=== PATIENT | male | born 1960 | race Caucasian/White ===

== ENCOUNTER 2019-10-16 09:37 | Outpatient (CLI) | payer MEDICARE, SELFPAY ==
--- NOTE | 2019-10-16 10:25 | ECG_ITS ---
Measurements Intervals [place] Rate: 66 P: 29 PA: 194 QRS: -16 QRSD: 98 T: 14 QT: 394 QTc: 414 Interpretive Statements SINUS RHYTHM BORDERLINE R WAVE PROGRESSION, ANTERIOR LEADS BORDERLINE ECG Electronically Signed On 10-16-2019 10:49:25 [employer] by Leo Kurtz D.O.
[2019-10-16 11:16] LABS: Eosinophils Absolute Auto 0.2 K/mm3 (0-0.3); Eosinophils Percent Auto 4.5 % (0-4.4); Hematocrit 45.6 % (42.0-52.0); Hemoglobin 15.3 g/dL (14.0-18.0); Immature Granulocyte Absolute 0.01 K/mm3 (0.00-0.031); Immature Granulocyte Percent A 0.3 % (0-0.5); Lymphocytes Absolute Auto 0.81 K/mm3 (0.9-3.2); Lymphocytes Percent Auto 20.3 % (18.3-44.2); Mean Corpuscular HGB Conc 33.6 g/dl (32-36); Mean Corpuscular Hemoglobin 29.9 pg (26-34); Mean Corpuscular Volume 89.1 fl (80-100); Mean Platelet Volume 10.3 fl (7.4-10.4); Monocytes Absolute Auto 0.5 K/mm3 (0.1-0.6); Monocytes Percent Auto 13.5 % (2.6-8.5); Neutrophils Absolute Auto 2.4 K/mm3 (1.3-6.7); Neutrophils Percent Auto 60.4 % (45.5-73.1); Platelet Count Result 255 k/mm3 (150-375); Red Blood Count 5.12 M/mm3 (4.6-6.20)
[2019-10-16 11:23] LABS: Urine Cotinine NEGATIVE
[2019-10-16 11:26] LABS: Albumin Level 4.6 g/dL (3.5-5.1); Estimated Glomerular Filt Rate > 60; Glucose 93 mg/dL (75-110)
[2019-10-16 11:51] LABS: Hemoglobin A1C 5.1 % (<5.7)
== END 2019-10-16 09:38 | disposition home or self-care (01) ==
PROVIDERS: PCP Family Medicine; Visit Provider Orthopaedic Surgery
DX: Z01.818 Encounter for other preprocedural examination (principal); M17.10 Unilateral primary osteoarthritis, unspecified knee
CPT/HCPCS: 36415; 80307; 82040; 82565; 82947; 83036; 85025; 93005

== ENCOUNTER 2019-10-31 01:52 | Day surgery (SDC) | payer MEDICARE, SELFPAY ==
[2019-10-16 10:25] VITALS: BP 142/90; PULSE 69; RESP 16; TEMP 36.7; O2SAT 95; BMI 36.1
--- NOTE | 2019-10-29 11:17 | PM.IMHP ---
H&P: HPI History of Present Illness Chief complaint: Osteoarthritis Right Knee Narrative: Evans Rico is a 59 year old male with chronic ongoing history of pain localized right knee this is due to primary osteoarthritis. The patient has pain with ambulation he has started pain rest pain and night pain. He can't stand or walk for long periods, he has mechanical symptoms and swelling occasionally problems are worse with activity somewhat relieved by rest. Patient has trouble with squatting kneeling going up and down stairs. Despite a long course of conservative measures including cortisone therapy and anti-inflammatories as symptoms continue. X-rays demonstrate advanced primary osteoarthritis in the right knee joint. At this point the patient is discuss further treatment options in detail with Dr. Kapadia he would now like to proceed with a right total knee arthroplasty. The patient has a history of mild depression and benign prostatic hypertrophy for which she is treated with medication orally. Patient denies any previous surgical interventions. He has a history of primary osteoarthritis as well. Patient reports no known drug allergies. Review of Systems Review of Systems: Narrative: Ten point review of systems is negative except for occasional ringing in his ears. [facility] Family History Family History Mother Family history of malignant neoplasm Father Family history of pancreatic disease Other Cerebrovascular accident Family history of cardiovascular disease Social History Social History Smoking status: Former smoker Smoking end date: 09/05/08 Alcohol intake: never Gender identity (if verbalized by the patient): Male Meds Home Medications and Allergies Home Medications Medication Instructions Recorded Confirmed Type diphenhydramine HCl [Allergy 25 mg PO Q6H PRN 10/16/19 10/16/19 History (diphenhydramine)] duloxetine 60 mg PO DAILY 10/16/19 10/16/19 History meloxicam 15 mg PO DAILY 10/16/19 10/16/19 History tamsulosin 0.4 mg PO DAILY 10/16/19 10/16/19 History Allergies Allergy/AdvReac Type Severity Reaction Status Date / Time No Known Allergies Allergy Unverified 10/16/19 09:55 Exam Narrative: Exam Narrative: On exam the patient is noted be well-developed well-nourished male no acute distress HEENT exam within normal limits heart regular rate rhythm. Lungs clear to auscultation. The patient is noted be 510-135 lb. Abdomen benign. Extremities showed the patient's right knee to be painful with manipulation range of motion. He has tenderness along the joint lines of pain the extremes of motion with subpatellar crepitation mild effusion swelling. Hips move well negative Stinchfield negative REESE. Strength is 5 5. x-rays show advanced primary osteoarthritis right knee joint. there is mild limitation of motion due to pain. Neurovascular is intact. Skin is intact. Central nervous system exam within normal limits. Assessment and Plan Additional Plan The patient is noted to have advanced primary osteoarthritis right knee joint. The patient has discussed risks benefits limitations and alternatives of surgery in great detail with Dr. Kapadia the patient is noted proceed with a right total knee arthroplasty. The patient is scheduled to go surgery 10/31/[address] [facility] with Dr. Kapadia the patient voiced understanding agrees above plan.
[2019-10-31] VITALS (12 sets, daily range): BP systolic 87–130; BP diastolic 63–103; PULSE 76–93; RESP 12–20; TEMP 36.3–36.8; O2SAT 92–98
--- NOTE | ~2019-10-31 | XR_ITS ---
EXAMINATION: XR knee RT 2V DATE: 10/31/2019 09:35 INDICATION: Total right knee arthroplasty. Postop. TECHNIQUE: 2 views of right knee were obtained. COMPARISON: Right knee radiographs 04/23/2013 FINDINGS: There is a total right knee arthroplasty with patellar resurfacing in near-anatomic alignme nt. No fracture. There is gas in the knee joint and soft tissues, consistent with recent surgery. Ant erior skin pao are noted. IMPRESSION: 1. Total right knee arthroplasty in near-anatomic alignment. Reviewed, dictated and finalized at location A. ER MACHINE
[2019-10-31] MEDS: LACTATED RINGERS 1,000 ML 30 ML IV CONT ×2 (06:35→09:18)
--- NOTE | 2019-10-31 07:01 | WPDHPUPDATE1 ---
History and Physical Update Update Date/Time: 10/31/19 07:01 History and Physical has been reviewed, including an updated exam of the patient. There are NO changes in the patient's condition. Risks, benefits, and alternatives have been discussed and questions answered. Patient agrees to proceed with procedure.
--- NOTE | 2019-10-31 07:20 | WPDANESEPPF ---
Anes - Initial Pre Proc Eval Procedure: Operation Date: 10/31/19 07:30 Proposed Procedures p Right Total Knee Arthroplasty - Mauro Kapadia MD Date/Time: 10/31/19 07:20 Surgeon: Mauro Kapadia MD Pre Op Diagnosis: Osteoarthritis Right Knee Patient Data Age: 59 Gender: M Height: 1.78 m Weight: 112.3 kg Last Vital Signs Temp 36.4 C L 10/31/19 06:15 Pulse 69 10/16/19 10:25 Resp 20 10/31/19 06:15 BP 125/89 10/31/19 06:15 Pulse Ox 97 10/31/19 06:15 Allergies Allergy/AdvReac Type Severity Reaction Status Date / Time No Known Allergies Allergy Unverified 10/31/19 06:46 Home Medications Medication Instructions Recorded Confirmed Type diphenhydramine HCl [Allergy 25 mg PO Q6H PRN 10/16/19 10/31/19 History (diphenhydramine)] duloxetine 60 mg PO DAILY 10/16/19 10/31/19 History meloxicam 15 mg PO DAILY 10/16/19 10/31/19 History tamsulosin 0.4 mg PO DAILY 10/16/19 10/31/19 History Patient hx anesthesia problems: none Family hx anesthesia problems: none [facility] Past Medical History Medical History (Updated 10/31/19 @ 07:21 by Dion Benitez MD) Anxiety Arthritis BPH (benign prostatic hyperplasia) Obesity Family History Family History Mother Family history of malignant neoplasm Father Family history of pancreatic disease Other Cerebrovascular accident Family history of cardiovascular disease Social History Social History Smoking status: Former smoker Smoking end date: 09/05/08 Alcohol intake: never Gender identity (if verbalized by the patient): Male Anes - Eval Final PreProcedure Day of Procedure 10/31/19 07:20 Patient weight: obese Heart: regular rate and rhythm Lungs: clear to auscultation and normal air movement Airway: Mallampati scale class II Neurological: alert and oriented Last oral intake: >/= 8 hours ASA classification: II Emergent: no Anesthetic plan: proceed Anesthesia type and monitoring: general LMA and ETT Informed Consent: The patient's anesthetic plan and its attendant risks and benefits were discussed with the patient/family/POA. Questions were solicited and answers provided to the satisfaction of the patient/family/POA.
[2019-10-31] MEDS: ceFAZolin 2 GM/D5W 50 ML 2 GM/50 ML BAG IVPB (07:37)
--- NOTE | 2019-10-31 07:39 | WPDANESPNB ---
Anes - Peripheral Nerve Block Date/Time: 10/31/19 07:39 I have discussed with the patient/family/POA the placement of a peripheral nerve block for post-operative pain management, including associated risks, benefits, complications, and side effects. Alternative methods of post-operative analgesia were detailed. Questions were solicited and answers provided to the satisfaction of the patient/family/POA. Time-Out: A pre-procedural Time-Out was completed immediately before starting the procedure and confirmed: Patient Identification, Site, Procedure, Patient Position and the Availability of Requisite Equipment. Clinical Indications: Acute post-operative pain management requested by the operative surgeon. Nerve Block Insertion Note Anes-nerve block: adductor canal right Patient position: supine Skin prep: chlorhexidine Needle: 22 gauge, stimulating, insulated echogenic needle. Needle length: 80 mm Technique: ultrasound Technique comment: in plane Injectate: bupivacaine 0.5% with epi 5 mcg/ml (30cc) Observations: tolerated well Complications: none Procedure start time:: 725 Procedure end time:: 730
[2019-10-31] MEDS: GENTAMICIN BONE CEMENT REFOBACIN 1 EACH TOPICAL (07:47)
[2019-10-31] MEDS: ceFAZolin SODIUM 1 GM VIAL IV PUSH (08:36)
--- NOTE | 2019-10-31 08:47 | P.OP_ITS ---
Procedure Note - Detailed Date of procedure: 10/31/19 Pre-op diagnosis: Osteoarthritis Right Knee Post-op diagnosis: same Procedure performed: [Right] total knee arthroplasty Description of procedure: The patient was brought to the operating room. General anesthetic was administered. Placed on the operating table and sterilely prepped and draped in usual manner. A longitudinal incision was made. Tourniquet inflated to 300 mmHg for a total of [time] minutes. Dissection carried down to the fascia. Medial parapatellar incision was made and the patella subluxated laterally. Patella cut from [25] to [16] mm and sized for a [] mm button. The tibia cut perpendicular to the long axis and femur cut in 5 degrees of valgus, a [70] femur trialed. [79] tibia was felt to fit the best. The soft tissue balanced, hemostasis obtained. All [address], [79] tibia, [70] femur, [34] mm patella, and [14] mm poly. Motion was 0-125 degrees with good stablility and flexion and extension. The wound was closed with #2 vicryl, 2-0 Vicryl and pao. Anesthesia: GETA Surgeon: Mauro Kapadia MD [employer] Administrator: Hong Potter Estimated blood loss (mL): 200 Drains: No Packing: No Pathology: none sent Complications: No immediate complications Condition: stable Disposition: PACU Findings: arthritis
--- NOTE | 2019-10-31 09:53 | SUR.PHASEI ---
0953 - family updated on pt's status and sent to floor
[2019-10-31] MEDS: DOCUSATE SODIUM 100 MG CAPSULE PO ×2 (12:35→18:34)
--- NOTE | 2019-10-31 13:25 | WPDCN ---
Assessment and Plan Assessment and plan (1) Arthritis of right knee: Code(s): M17.11 - Unilateral primary osteoarthritis, right knee Status: Acute Assessment and Plan: Postoperative day 0, right total knee arthroplasty. Wound care and pain control deferred to Dr. Kapadia. Will also defer DVT prophylaxis to Dr. Kapadia. CBC and BMP ordered for a.m. (2) BPH (benign prostatic hyperplasia): Code(s): N40.0 - Benign prostatic hyperplasia without lower urinary tract symptoms Status: Acute Assessment and Plan: Continue tamsulosin. (3) Anxiety: Code(s): F41.9 - Anxiety disorder, unspecified Status: Acute Assessment and Plan: Continue duloxetine. HPI Data of Consult Date/Time: 10/31/19 13:25 Requesting Physician: Mauro Kapadia MD Primary Care Provider: Jose Elizalde MD Consult Narrative Narrative: Evans Rico is a 5-year-old male with osteoarthritis and benign prostatic hyperplasia whom the hospitalist service has been consulted for postoperative medical management. He has had longstanding pain in his right knee, not amenable to conservative outpatient treatment, and thus he elected for replacement today. His surgery was performed today per Dr. Kapadia, under general anesthesia, with no immediate complications documented an estimated blood loss of 200 milliliters. Postoperatively, he notes that his pain is pretty well controlled. He has not had postoperative fever, chills, sweats, nausea, vomiting, or chest pain, or shortness of breath. He also denies paresthesias, skin color, temperature changes distal to the surgical site. Review of Systems Review of Systems: Narrative: Twelve systems were reviewed with pertinent positives and negatives as per HPI. No recent cold or flu symptoms. No history of cardiac or pulmonary disease. He had a syncopal episode in 2011, and prior to losing consciousness he was complaining of palpitations. A stress echo done in November 2011 was unremarkable, and he has had no issues since that time. He denies exertional chest pain and shortness of breath. No history of obstructive sleep apnea, however when he had a colonoscopy at age 49 he was told that he should probably be checked for it. He does snore and admits that he does not sleep very well. He denies daytime somnolence and falling asleep at inopportune times. No witnessed apneic episodes. He does not wish to be screened for this today. No history of venous thromboembolism. Except as documented, all other systems were reviewed and are negative. [facility] Past Medical History Medical History (Updated 10/31/19 @ 15:06 by Rosalba Barron PA-C) Anxiety Arthritis BPH (benign prostatic hyperplasia) Obesity Surgical History Surgical History (Updated 10/31/19 @ 15:04 by Rosalba Barron PA-C) S/P cubital tunnel release Status post laparoscopic cholecystectomy Status post total right knee replacement Family History Family History Mother Family history of malignant neoplasm Father Family history of pancreatic disease Other Cerebrovascular accident Family history of cardiovascular disease Social History Social History (Updated 10/31/19 @ 15:08 by Rosalba Barron PA-C) Social History: The patient is and lives with his in [place], [place]. 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 He designates his , Gillian, as his surrogate decision maker and he wishes to be a full code. He is a former smoker and quit > 10 years ago. No alcohol or drug abuse. Spiritual care concerns: No Agree to blood products: No Meds Home Medications and Allergies Home Medications Medication Instructions Recorded Confirmed Type diphenhydramine HCl [Allergy 25 mg PO Q6H PRN 10/16/19 10/31/19 History (diphenhydramine)] duloxetine 60 m
[2019-10-31] MEDS: CELECOXIB 200 MG CAPSULE PO (18:34)
[2019-10-31] MEDS: RIVAROXABAN 10 MG TABLET PO (18:34)
[2019-11-01 02:00] VITALS: BP 110/75; PULSE 81; RESP 16; TEMP 36.9; O2SAT 92
[2019-11-01 06:00] VITALS: BP 116/72; PULSE 84; RESP 18; TEMP 36.9; O2SAT 96
[2019-11-01 06:22] LABS: Basophils Percent Auto 0.2 % (0.2-1.2); Hematocrit 38.4 % (42.0-52.0); Hemoglobin 12.4 g/dL (14.0-18.0); Immature Granulocyte Absolute 0.07 K/mm3 (0.00-0.031); Immature Granulocyte Percent A 0.6 % (0-0.5); Lymphocytes Absolute Auto 0.71 K/mm3 (0.9-3.2); Lymphocytes Percent Auto 5.9 % (18.3-44.2); Mean Corpuscular HGB Conc 32.3 g/dl (32-36); Mean Corpuscular Hemoglobin 29.7 pg (26-34); Mean Corpuscular Volume 92.1 fl (80-100); Mean Platelet Volume 10.4 fl (7.4-10.4); Monocytes Absolute Auto 1.2 K/mm3 (0.1-0.6); Neutrophils Percent Auto 83.3 % (45.5-73.1); Platelet Count Result 229 k/mm3 (150-375); Red Blood Count 4.17 M/mm3 (4.6-6.20); Red Cell Distribution Width 12.4 % (11.5-14.5); White Blood Count 11.9 K/mm3 (4.5-10.0)
[2019-11-01 06:42] LABS: Blood Urea Nitrogen 19 mg/dL (9-20); Calcium 8.5 mg/dL (8.4-10.2); Carbon Dioxide 29 mmol/L (22-30); Chloride 96 mmol/L (98-107); Estimated CRCL calculation 96 ml/min; Estimated Glomerular Filt Rate > 60; Glucose 120 mg/dL (75-110); Potassium 4.4 mmol/L (3.4-5.0); Sodium 136 mmol/L (137-145)
[2019-11-01] MEDS: TAMSULOSIN HCL 0.4 MG CAPSULE PO (08:19)
[2019-11-01] MEDS: CELECOXIB 200 MG CAPSULE PO (08:19)
[2019-11-01] MEDS: DOCUSATE SODIUM 100 MG CAPSULE PO (08:19)
[2019-11-01] MEDS: DULOXETINE 60 MG CAPSULE.DR PO (08:19)
--- NOTE | 2019-11-01 09:23 | PM.IMPN ---
Progress Note: A&P Assessment and Plan (1) Status post total right knee replacement: Code(s): Z96.651 - Presence of right artificial knee joint Status: Acute Assessment and Plan: POD#1 s/p right total knee arthroplasty by Dr. Kapadia 10/31. Wound care, pain control, DVT prophylaxis per the primary service. (2) BPH (benign prostatic hyperplasia): Qualifiers: Lower urinary tract symptom presence: unspecified whether lower urinary tract symptoms present Qualified Code(s): N40.0 - Benign prostatic hyperplasia without lower urinary tract symptoms Code(s): N40.0 - Benign prostatic hyperplasia without lower urinary tract symptoms Status: Acute Assessment and Plan: Continue tamsulosin. (3) Anxiety: Code(s): F41.9 - Anxiety disorder, unspecified Status: Acute Assessment and Plan: Stable. Continue duloxetine. Additional Plan Thank you for allowing me to participate this patient's care. He is medically stable for discharge from hospitalist standpoint once the primary service deems this appropriate. Recommend continuing his home medications at the current dosages. Subjective Date/time seen: 11/01/19 0845 Interval history: Mr. Rico is a 59yo M seen in follow-up this morning POD#1 s/p right total knee arthroplasty by Dr. Kapadia. Seems to have tolerated the procedure well and is in good spirits this morning. He has not yet been up with therapy. He denies chest pain, shortness of breath, or calf tenderness. He has tolerated breakfast without nausea or vomiting. Review of Systems Review of Systems: Narrative: Twelve systems were reviewed with pertinent positives and negatives as per HPI. Exam Narrative: Exam Narrative: General: Pleasant male resting supine in bed in no acute distress. HEENT: Normocephalic, EOMI, oral mucosa moist. Cardiovascular: Rate and rhythm are regular. Respiratory: Lungs clear to auscultation all higgins. Non-labored breathing. Abdomen: Soft, non-tender, non-distended, bowel sounds present. Extremities: Peripheral pulses intact. No edema appreciated. Right lower extremity neurovascularly intact distal to the surgical site. Ice pack applied to right knee and Juan wrap in place. Neuro: No focal neurological deficits. Speech is clear. Objective Data Vital Signs Vital Signs: Last Vital Signs Temp 98.4 F 11/01/19 06:00 Pulse 84 11/01/19 06:00 Resp 18 11/01/19 06:00 BP 116/72 11/01/19 06:00 Pulse Ox 96 11/01/19 06:00 Intake/Output Intake/Output: Intake & Output 10/29/19 10/30/19 10/31/19 11/01/19 23:59 23:59 23:59 23:59 Intake Total 1240 600 Balance 1240 600 Meds/Results Medications: Active Medications Generic Name Dose Route Start Last Admin Trade Name Freq PRN Reason Stop Dose Admin Hydrocodone Bitart/Acetaminophen 1 tab 10/31/19 10:35 11/01/19 08:19 [place] 5-325 Mg PO 1 tab Q4H PRN Administration Moderate Pain (4-6) Celecoxib 200 mg 10/31/19 17:00 11/01/19 08:19 Celebrex PO 200 mg BIDWM PAWAN Administration Docusate Sodium 100 mg 10/31/19 10:35 11/01/19 08:19 Colace Capsule PO 100 mg BID PAWAN Administration Duloxetine HCl 60 mg 11/01/19 09:00 11/01/19 08:19 Cymbalta PO 60 mg DAILY PAWAN Administration Morphine Sulfate 4 mg 10/31/19 10:35 Morphine Sulfate Inj IV PUSH Q2H PRN Breakthrough pain rated 7-10 Naloxone HCl 0.1 mg 10/31/19 10:35 Narcan IV PUSH Q2M PRN Opiate Reversal Oxycodone HCl 2.5 mg 10/31/19 10:35 Roxicodone Ir Tablet PO Q4H PRN Pain Rated 1-3 Rivaroxaban 10 mg 10/31/19 17:00 10/31/19 18:34 Xarelto PO 11/11/19 17:01 10 mg DAILY@17 PAWAN Administration Tamsulosin HCl 0.4 mg 11/01/19 09:00 11/01/19 08:19 Flomax PO 0.4 mg DAILY PAWAN Administration Radiology Results:
--- NOTE | 2019-11-01 11:03 | PM.PNORT ---
Progress Note: A&P Additional Plan Patient doing well postop day 1 he is deemed stable for discharge to home, see discharge orders. Patient voices understanding agrees with the above plan. Time Spent With Patient Time with patient: less than 15 minutes Subjective Subjective Date/Time Seen: 11/01/19 11:03 Patient doing very well since surgery. Status post right total knee arthroplasty postop day 1. He has no significant complaints pain is well controlled and tolerated physical therapy well. He is deemed stable for discharge to home. Exam Narrative: Exam Narrative: Vital signs stable afebrile neurovascular is intact wound is clean and dry calves are benign patient is ambulating independently with a walker in therapy today. Objective Data Vital Signs Vital Signs: Vital Signs - 24 hr 10/31/19 11:05 10/31/19 11:35 10/31/19 12:30 Temperature 36.3 C L Pulse Rate 89 88 88 Respiratory Rate 18 18 18 Blood Pressure 127/103 H 127/86 130/86 Pulse Oximetry 94 95 98 10/31/19 22:00 11/01/19 02:00 11/01/19 06:00 Temperature 36.8 C 36.9 C 36.9 C Pulse Rate 91 81 84 Respiratory Rate 18 16 18 Blood Pressure 124/88 110/75 116/72 Pulse Oximetry 93 92 96 Intake/Output Intake/Output: Intake & Output 10/29/19 10/30/19 10/31/19 11/01/19 23:59 23:59 23:59 23:59 Intake Total 1240 600 Balance 1240 600 Meds/Results Medications: Active Medications Generic Name Dose Route Start Last Admin Trade Name Freq PRN Reason Stop Dose Admin Hydrocodone Bitart/Acetaminophen 1 tab 10/31/19 10:35 11/01/19 08:19 [place] 5-325 Mg PO 1 tab Q4H PRN Administration Moderate Pain (4-6) Celecoxib 200 mg 10/31/19 17:00 11/01/19 08:19 Celebrex PO 200 mg BIDWM PAWAN Administration Docusate Sodium 100 mg 10/31/19 10:35 11/01/19 08:19 Colace Capsule PO 100 mg BID PAWAN Administration Duloxetine HCl 60 mg 11/01/19 09:00 11/01/19 08:19 Cymbalta PO 60 mg DAILY PAWAN Administration Morphine Sulfate 4 mg 10/31/19 10:35 Morphine Sulfate Inj IV PUSH Q2H PRN Breakthrough pain rated 7-10 Naloxone HCl 0.1 mg 10/31/19 10:35 Narcan IV PUSH Q2M PRN Opiate Reversal Oxycodone HCl 2.5 mg 10/31/19 10:35 Roxicodone Ir Tablet PO Q4H PRN Pain Rated 1-3 Rivaroxaban 10 mg 10/31/19 17:00 10/31/19 18:34 Xarelto PO 11/11/19 17:01 10 mg DAILY@17 PAWAN Administration Tamsulosin HCl 0.4 mg 11/01/19 09:00 11/01/19 08:19 Flomax PO 0.4 mg DAILY PAWAN Administration Radiology Results: ITS Impressions Knee X-Ray 10/31/19 09:49 IMPRESSION: 1. Total right knee arthroplasty in near-anatomic alignment. Labs Labs: Laboratory Results - last 24 hr 11/01/19 11/01/19 05:59 05:59 WBC 11.9 H RBC 4.17 L Hgb 12.4 L Hct 38.4 L MCV 92.1 MCH 29.7 MCHC 32.3 RDW 12.4 Plt Count 229 MPV 10.4 Immature Gran % (Auto) 0.6 H Neut % (Auto) 83.3 H Lymph % (Auto) 5.9 L [place] % (Auto) 10.0 H Eos % (Auto) 0.0 Baso % (Auto) 0.2 Lymph # (Auto) 0.71 L [place] # (Auto) 1.2 H Eos # (Auto) 0.0 Baso # (Auto) 0.0 Abs Immat Gran (auto) 0.07 H Absolute Neuts (auto) 10.0 H Absolute Nucleated RBC 0.0 Nucleated RBC % 0.0 Sodium 136 L Potassium 4.4 Chloride 96 L Carbon Dioxide 29 BUN 19 Creatinine 0.90 Estim Creat Clear Calc 96 Estimated GFR > 60 Glucose 120 H Calcium 8.5
--- NOTE | 2019-11-01 11:15 | PM.DS ---
DS: Diagnosis Admitting Diagnosis Admitting Diagnosis: Unilateral primary osteoarthritis, right knee. The patient is doing well postop day 1 without complications postoperatively. DS: Summary Time Spent with Patient Time attestation: Total time spent providing and/or coordinating discharge services: Exam Narrative: Exam Narrative: Vital signs stable afebrile neurovascular the patient is intact, wound is clean and dry calves are benign. Patient tolerates physical therapy well in no acute distress today. Patient deemed stable for discharge home. DS: Data Data Completed and Pending Labs on day of discharge: Labs from last 24 hours 11/01/19 11/01/19 05:59 05:59 WBC 11.9 H RBC 4.17 L Hgb 12.4 L Hct 38.4 L MCV 92.1 MCH 29.7 MCHC 32.3 RDW 12.4 Plt Count 229 MPV 10.4 Immature Gran % (Auto) 0.6 H Neut % (Auto) 83.3 H Lymph % (Auto) 5.9 L [place] % (Auto) 10.0 H Eos % (Auto) 0.0 Baso % (Auto) 0.2 Lymph # (Auto) 0.71 L [place] # (Auto) 1.2 H Eos # (Auto) 0.0 Baso # (Auto) 0.0 Abs Immat Gran (auto) 0.07 H Absolute Neuts (auto) 10.0 H Absolute Nucleated RBC 0.0 Nucleated RBC % 0.0 Sodium 136 L Potassium 4.4 Chloride 96 L Carbon Dioxide 29 BUN 19 Creatinine 0.90 Estim Creat Clear Calc 96 Estimated GFR > 60 Glucose 120 H Calcium 8.5 Discharge Plan Discharge Patient Disposition: Home, Self-Care Discharge Instructions: Patient discharge to home general diet activity as tolerated weight-bearing as tolerated right lower extremity. Change dressing daily keep it dry launch for evidence of drainage or infection. Patient is instructed to call the office immediately for any questions or problems at [phone]. Patient is discharged with prescriptions for [place] and Xarelto, when the Xarelto course is complete the patient will start aspirin 325 mg p.o. b.i.d. x1 month for DVT prophylaxis. Follow up 2 weeks postop for staple removal and wound recheck. Patient is to start outpatient physical therapy beginning early next week at our office as prescheduled. Hospitalist Discharge Instructions: Follow up with Dr Kapadia as instructed and follow up with primary care provider as needed. Patient Instructions: Pain Management (DC), Precautions after Total Joint Replacement Surgery (DC), Knee Replacement (DC) Stand Alone Forms: Avoid NSAIDs Follow-up/Referrals: Hong Potter PA [Physician Lead Software Tester] - Jose Elizalde MD [Primary Care Provider] - Follow Up with Primary Dr Discharge Medications: New celecoxib [Celebrex] 200 mg Capsule 200 mg PO BID PRN (Reason: Pain, Severe) Qty: 60 RF: 0 hydrocodone-acetaminophen 7.5-325 mg tablet 1 tablet PO Q4H PRN (Reason: Moderate Pain (4-6)) Qty: 50 RF: 0 Xarelto 10 mg Tablet 10 mg PO DAILY@17 Qty: 13 RF: 0 Continued tamsulosin 0.4 mg Capsule 0.4 mg PO DAILY RF: 0 diphenhydramine HCl [Allergy (diphenhydramine)] 25 mg Capsule 25 mg PO Q6H PRN (Reason: ALLERGIES) RF: 0 duloxetine 60 mg Capsule,Delayed Release(Dr/Ec) 60 mg PO DAILY RF: 0 Discontinued meloxicam 15 mg Tablet 15 mg PO DAILY RF: 0
== END 2019-11-01 12:35 | disposition home or self-care (01) ==
LOC: ANHSURGERY 06:06 → ANH3MEDSUR 10:49
PROVIDERS: PCP Family Medicine; Visit Provider Orthopaedic Surgery
PROC: (CPT 27447; principal; 2019-10-31 07:30)
DX: M17.11 Unilateral primary osteoarthritis, right knee (principal); G89.18 Other acute postprocedural pain; N40.0 Benign prostatic hyperplasia without lower urinary tract symptoms; F41.9 Anxiety disorder, unspecified; E66.9 Obesity, unspecified; Z68.35 Body mass index [BMI] 35.0-35.9, adult; Z87.891 Personal history of nicotine dependence
CPT/HCPCS: 27447; 64447; 36415; 73560; 80048; 80307; 82040; 82565; 82947; 83036; 85025; 86850; 86900; 86901; 93005; 97110; 97116; 97161; 97165; 97530; A9270; C1713; C1776; C9290; J0131; J0171; J0690; J1100; J1170; J1885; J2250; J2270; J2405; J2704; J2795; J3010; J3370; J7030; J7120

== ENCOUNTER 2019-11-05 10:19 | Outpatient (CLI) | payer MEDICARE, SELFPAY ==
--- NOTE | ~2019-11-05 | US_ITS ---
EXAMINATION:US venous doppler LE RT INDICATION:Calf swelling and tenderness TECHNIQUE: Multiple grayscale, color flow and Doppler images of the right lower extremity deep venous systems were obtained and reviewed. COMPARISON:No prior studies for comparison. FINDINGS: The common femoral, superficial femoral and popliteal veins demonstrate normal respiratory variation, augmentation and compressibility. Color flow is also seen within the posterior tibial, pe roneal, greater saphenous and profunda veins. IMPRESSION: 1: No lower extremity deep venous thrombosis. Reviewed, dictated and finalized at location B. PAINTER
== END 2019-11-05 10:20 | disposition home or self-care (01) ==
LOC: ANHIMG 10:22
PROVIDERS: PCP Family Medicine; Visit Provider Orthopaedic Surgery
DX: M79.89 Other specified soft tissue disorders (principal)
CPT/HCPCS: 93971

== ENCOUNTER 2019-11-13 15:14 | Outpatient (CLI) | payer MEDICARE, SELFPAY ==
--- NOTE | ~2019-11-13 | US_ITS ---
EXAMINATION: US venous doppler LE EXAM DATE: 11/13/2019 15:59 INDICATION: Right knee replacement 2 weeks ago. TECHNIQUE: Multiple grayscale, color flow and Doppler images of the right lower extremity deep venous system obtained and reviewed. Comparison is made to prior examination from 11/05/2019. FINDINGS: RIGHT SIDE Common femoral: -------- Normal. Profunda femoral: ------- Normal. Femoral: Normal. Popliteal: Thrombosed. Posterior tibial: --------- Normal. Peroneal: Normal. Gastrocnemius: Thrombosed. Soleus: Not visualized. Greater saphenous: ----- Normal. Lesser saphenous: ------ Not visualized. IMPRESSION: 1. Development of right popliteal, gastrocnemius DVT. STAT hold and call. I confirmed with Omar that patient is in waiting room, and who is notifying or dering doctor of results. Patient will be given instructions at that time. Reviewed, dictated and finalized at location A. IMPRESSION: 1. Development of right popliteal, gastrocnemius DVT. STAT hold and call. I confirmed with Oamr that patient is in waiting room, a nd who is notifying ordering doctor of results. Patient will be given instructi ons at that time.
== END 2019-11-13 15:15 | disposition home or self-care (01) ==
PROVIDERS: PCP Family Medicine; Visit Provider Orthopaedic Surgery
DX: M79.89 Other specified soft tissue disorders (principal); Z96.651 Presence of right artificial knee joint; I82.890 Acute embolism and thrombosis of other specified veins; I82.431 Acute embolism and thrombosis of right popliteal vein; I82.461 Acute embolism and thrombosis of right calf muscular vein
CPT/HCPCS: 93971

== ENCOUNTER 2020-01-10 14:13 | Emergency (ER) | payer MEDICARE, SELFPAY ==
--- NOTE | 2020-01-10 16:08 | ED.WOUNDLAC ---
HPI - Wound/Laceration General Chief Complaint: Wound/Laceration Stated Complaint: Laceration Time Seen by Provider: 01/10/20 14:20 Source: patient and RN notes reviewed Mode of arrival: ambulatory Limitations: no limitations History of Present Illness HPI narrative: 59-year-old male presents with concern for laceration to the dorsal aspect of the right hand. He sustained this laceration prior to arrival on a fillet knife. Reports he is up-to-date on his tetanus he denies any decreased wrist motion in any digit, decreased sensitivity. Extremity Location: Right: hand Related Data Home Medications Medication Instructions Recorded Confirmed diphenhydramine HCl [Allergy 25 mg PO Q6H PRN 10/16/19 10/31/19 (diphenhydramine)] duloxetine 60 mg PO DAILY 10/16/19 10/31/19 tamsulosin 0.4 mg PO DAILY 10/16/19 10/31/19 Allergies Allergy/AdvReac Type Severity Reaction Status Date / Time No Known Allergies Allergy Unverified 10/31/19 06:46 Review of Systems Review of Systems: Narrative: CONSTITUTIONAL: Denies malaise, chills, sweats, or fever. CARDIOVASCULAR: Denies chest pain, palpitations, or edema. SKIN: Reports laceration to the dorsal aspect of his right hand MUSCULOSKELETAL: Denies decreased range of motion or decrease sensation NEUROLOGIC: Denies numbness, weakness. All systems reviewed & are unremarkable except as noted in HPI and below PMFSH Past Medical History Medical History (Updated 01/10/20 @ 16:15 by Laurel Masters NP) Anxiety Arthritis BPH (benign prostatic hyperplasia) Obesity Surgical History Surgical History (Updated 11/01/19 @ 09:27 by Tricia Marin PA-C) S/P cubital tunnel release Status post laparoscopic cholecystectomy Status post total right knee replacement Social History Social History (Updated 10/31/19 @ 15:08 by Rosalba Barron PA-C) Social History: The patient is and lives with his in [place], [place]. 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 He designates his , Gillian, as his surrogate decision maker and he wishes to be a full code. He is a former smoker and quit > 10 years ago. No alcohol or drug abuse. Spiritual care concerns: No Agree to blood products: No Comments At time of signature, agree with nursing past medical, surgical, social and family history. There is no relevant family history pertinent to the presenting complaint Exam Narrative: Exam Narrative: GENERAL: Well-appearing, well-nourished, and in no acute distress. HEAD: Normocephalic, atraumatic. EYES: PERRLA, conjunctivae clear NECK: Supple. CHEST: Speaks in full sentences. No respiratory distress. HEART: Regular rate and rhythm. Normal and equal peripheral pulses. EXTREMITIES: Right hand and digits of hand have normal strength and sensation. 5/5 strength with digit flexion, extension. Range of motion normal. No clubbing, cyanosis, or edema noted. No tenderness. Normal digital cascade with flexion of fingers, median, ulnar and radial nerve intact. Normal sensation of each side of finger. Can perform 'okay' sign, 'cross over finger test of index and middle fingers' and 'thumbs up' sign. No scissoring. Normal thumb opposition. Good capillary refill and radial pulse. Distal capillary refill ?3 seconds. SKIN: Warm, dry, no rash. Irregular 3.5 cm tissue laceration into the subcutaneous located to the dorsal aspect of the right hand beneath the second digit, not involving the digit NEURO: Alert and oriented x3. PSYCH: Normal mood and affect Course Course Emergency Course: Patient is aware of diagnosis, understands and agrees to treatment plan. Anticipatory guidance given. Patient agrees to follow-up as directed and is aware of reasons to seek care at the emergency department. Portions of this record may have been created with voice recognition software Vital Signs Vital signs: Reviewed. Procedures Laceration Laceration 1: Date
== END 2020-01-10 15:03 | disposition home or self-care (01) ==
PROVIDERS: Emergency Provider Nurse Practitioner; PCP Family Medicine
DX: S61.411A Laceration without foreign body of right hand, initial encounter (principal); F41.9 Anxiety disorder, unspecified; N40.0 Benign prostatic hyperplasia without lower urinary tract symptoms; M19.90 Unspecified osteoarthritis, unspecified site; E66.9 Obesity, unspecified; Z96.651 Presence of right artificial knee joint; Z87.891 Personal history of nicotine dependence; W26.0XXA Contact with knife, initial encounter
CPT/HCPCS: 12002; 99212; G0463

== ENCOUNTER 2020-07-04 16:44 | Outpatient (CLI) | payer MEDICARE, SELFPAY ==
--- NOTE | ~2020-07-04 | MR_ITS ---
EXAMINATION: MR lumbar spine wo [facility] EXAM DATE: 07/04/2020 17:51 INDICATION: Low back pain. TECHNIQUE: Multi-sequential, multiplanar MR images of the lumbar spine were obtained without contrast . Sagittal T1, T2, T2 fat saturation images. Axial T2 weighted images. Comparison is made to prior examination from 12/28/2016. FINDINGS: There is chronic L5 spondylolysis with 9 mm anterolisthesis L5 on S1. Moderate loss of lumb ar disc heights. The conus medullaris terminates at the L1 level and has normal signal intensity and morphology. There is 2 mm retrolisthesis L2 on L3, 3 mm retrolisthesis L3 on L4, 4 mm retrolisthesis L4 on L5. There is mild lumbar levoscoliosis. Paraspinal soft tissue is unremarkable. Level by level evaluation: T12-L1: There is a mild diffuse disc bulge. Facet arthropathy: Mild. Neural foraminal stenosis: No stenosis. Central canal stenosis: No stenosis. L1-L2: There is a mild to moderate diffuse disc bulge. Facet arthropathy: Mild. Neural foraminal stenosis: Mild bilateral. Central canal stenosis: Mild. L2-L3: There is a moderate diffuse disc bulge. Facet arthropathy: Mild to moderate. Neural foraminal stenosis: Moderate right, mild to moderate left. Central canal stenosis: Mild to moderate. L3-L4: There is a moderate diffuse disc bulge. Facet arthropathy: Mild to moderate. Neural foraminal stenosis: Mild to moderate bilateral. Central canal stenosis: Mild. L4-L5: There is a moderate diffuse disc bulge. Facet arthropathy: Moderate left, mild to moderate right. Neural foraminal stenosis: Moderate to severe left, moderate right. Central canal stenosis: No stenosis. L5-S1: There is a moderate diffuse disc bulge. Facet arthropathy: Mild to moderate. Neural foraminal stenosis: Severe bilateral. Central canal stenosis: No stenosis. Compared to prior study, mild progression in the disc disease. There has been interval mild progressi on in the L5-S1 neural foraminal stenosis and probably slight increase in the anterolisthesis. IMPRESSION: 1. L5 bilateral spondylolysis, L5-S1 grade 2 anterolisthesis with severe neural foraminal stenosis. 2. Otherwise moderate lumbar spondylosis. Reviewed, dictated and finalized at location B. 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 L5 bilateral spondylolysis, L5-S1 grade 2 anterolisthesis with severe neura l foraminal stenosis. 2. Otherwise moderate lumbar spondylosis.
== END 2020-07-04 16:45 | disposition home or self-care (01) ==
PROVIDERS: PCP Family Medicine; Visit Provider Nurse Practitioner Family
DX: M47.896 Other spondylosis, lumbar region (principal)
CPT/HCPCS: 72148

== ENCOUNTER 2021-03-20 07:57 | Outpatient (CLI) | payer MEDICARE, SELFPAY ==
--- NOTE | 2021-03-20 09:03 | ECG_ITS ---
Measurements Intervals [place] Rate: 61 P: 21 NE: 198 QRS: -10 QRSD: 102 T: 15 QT: 408 QTc: 413 Interpretive Statements SINUS RHYTHM DELAYED PRECORDIAL R/S TRANSITION BASELINE ARTIFACT- I, II BORDERLINE ECG Electronically Signed On 03-20-2021 9:20:50 CDT by Leo Kurtz D.O.
[2021-03-20 09:30] LABS: Basophils Percent Auto 0.8 % (0.2-1.2); Eosinophils Absolute Auto 0.2 K/mm3 (0-0.3); Eosinophils Percent Auto 4.3 % (0-4.4); Hematocrit 43.6 % (42.0-52.0); Hemoglobin 14.6 g/dL (14.0-18.0); Immature Granulocyte Absolute 0.01 K/mm3 (0.00-0.031); Immature Granulocyte Percent A 0.3 % (0-0.5); Lymphocytes Absolute Auto 0.78 K/mm3 (0.9-3.2); Lymphocytes Percent Auto 19.7 % (18.3-44.2); Mean Corpuscular HGB Conc 33.5 g/dl (32-36); Mean Corpuscular Hemoglobin 29.7 pg (26-34); Mean Corpuscular Volume 88.6 fl (80-100); Mean Platelet Volume 10.1 fl (7.4-10.4); Monocytes Absolute Auto 0.6 K/mm3 (0.1-0.6); Monocytes Percent Auto 13.9 % (2.6-8.5); Neutrophils Absolute Auto 2.4 K/mm3 (1.3-6.7); Platelet Count Result 248 k/mm3 (150-375); Red Blood Count 4.92 M/mm3 (4.6-6.20); Red Cell Distribution Width 12.3 % (11.5-14.5)
[2021-03-20 09:39] LABS: Albumin Level 4.5 g/dL (3.5-5.1); Estimated Glomerular Filt Rate > 60; Glucose 99 mg/dL (75-110)
[2021-03-20 09:41] LABS: Urine Cotinine NEGATIVE
[2021-03-20 11:04] LABS: Hemoglobin A1C 5.3 % (<5.7)
== END 2021-03-20 07:58 | disposition home or self-care (01) ==
LOC: ANHSURGERY 08:02
PROVIDERS: PCP Family Medicine; Visit Provider Orthopaedic Surgery
DX: Z01.818 Encounter for other preprocedural examination (principal); M17.12 Unilateral primary osteoarthritis, left knee
CPT/HCPCS: 80307; 82040; 82565; 82947; 83036; 85025; 86850; 86900; 86901; 93005

== ENCOUNTER 2021-04-01 00:46 | Day surgery (SDC) | payer MEDICARE, SELFPAY ==
--- NOTE | 2021-03-19 11:53 | PM.IMHP ---
H&P: HPI History of Present Illness Date/Time: 03/19/21 11:53 The patient is a 60-year-old male who presents with chronic left knee pain. The patient has advanced primary osteoarthritis left knee joint. He has trouble standing squatting kneeling going up and down stairs. He reports start-up pain rest pain and night pain and decreasing function range of motion left knee over time. The patient has tried cortisone therapy and anti-inflammatory medication without significant relief. He notes grinding crepitation through the arc of motion pain with almost any activities can not stand or walk for long periods. X-rays show advanced primary osteoarthritis left knee joint. At this point the patient has discussed further treatment options in detail with Dr. Kapadia he would now like to proceed with a left total knee arthroplasty. Chief Complaint: Left knee pain due to advanced primary osteoarthritis left knee joint. Review of Systems Review of Systems: All systems reviewed & are unremarkable except as noted in HPI and below PMFSH Past Medical History Medical History Anxiety Arthritis BPH (benign prostatic hyperplasia) Obesity Surgical History Surgical History S/P cubital tunnel release Status post laparoscopic cholecystectomy Status post total right knee replacement Family History Family History Mother Family history of malignant neoplasm Father Family history of pancreatic disease Other Cerebrovascular accident Family history of cardiovascular disease Social History Social History Social History: The patient is and lives with his in [place], [place]. [address] [facility] and raise Labrador retrievers. 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 He designates his , Gillian, as his surrogate decision maker and he wishes to be a full code. He is a former smoker and quit > 10 years ago. No alcohol or drug abuse. Spiritual care concerns: No Agree to blood products: No Meds Home Medications and Allergies Home Medications Medication Instructions Recorded Confirmed Type duloxetine 60 mg PO DAILY 10/16/19 10/31/19 History rivaroxaban [Xarelto] 10 mg PO DAILY@17 #13 tablet 11/01/19 Rx meloxicam 01/10/20 01/10/20 History Allergies Allergy/AdvReac Type Severity Reaction Status Date / Time Latex, Natural Rubber Allergy Rash Verified 01/10/20 16:32 Exam Narrative: Exam Narrative: The patient is well-developed well-nourished male in no acute distress 5 ft 10 in tall 250 lb BMI 35.9. Patient is alert oriented x3. Normal mood and affect. Hearing and vision intact. Respiratory is good no distress. Pulse regular rate rhythm. Abdomen benign. Extremities showed the patient's left knee to be painful with manipulation range of motion. He has tenderness on the joint lines and pain with extremes of motion with subpatellar crepitation mild effusion swelling. Knee joint is otherwise stable strength is 5 5. patient has a mild varus deformity left knee. Right knee shows a total knee arthroplasty in excellent alignment. Neurovascular is intact. Skin is intact. Central nervous system exam within normal limits. Assessment and Plan Additional Plan The patient has severe primary osteoarthritis left knee joint. Patient has discussed risks benefits limitations and alternatives of surgery in great detail with Dr. Kapadia he has noted proceed with left total knee arthroplasty. The patient is scheduled to undergo surgery 04/01/[address] at [facility] Dr. Kapadia. The patient voiced understanding and agrees with the above plan.
[2021-03-20 08:08] VITALS: BMI 37.3
[2021-03-20 09:05] VITALS: BP 143/89; PULSE 64; RESP 16; TEMP 36.8; O2SAT 97
--- NOTE | 2021-03-31 08:53 | WPDANESEPPF ---
Anes - Initial Pre Proc Eval Procedure: Operation Date: 04/01/21 07:30 Proposed Procedures p Left Total Knee Arthroplasty - Mauro Kapadia MD Date/Time: 03/31/21 08:53 Surgeon: Mauro Kapadia MD Pre Op Diagnosis: Osteoarthritis Left Knee Patient Data Age: 60 Gender: M Height: 1.78 m Weight: 118 kg Last Vital Signs Temp 36.8 C 03/20/21 09:05 Pulse 64 03/20/21 09:05 Resp 16 03/20/21 09:05 BP 143/89 H 03/20/21 09:05 Pulse Ox 97 03/20/21 09:05 Allergies Allergy/AdvReac Type Severity Reaction Status Date / Time Latex, Natural Rubber Allergy Rash AND Verified 04/01/21 06:08 ITCHING aspirin AdvReac Gastrointestinal Verified 04/01/21 06:08 Upset Home Medications Medication Instructions Recorded Confirmed Type duloxetine 60 mg PO DAILY 10/16/19 04/01/21 History meloxicam 15 mg PO DAILY 01/10/20 04/01/21 History cetirizine [Zyrtec] 10 mg PO DAILY 03/20/21 04/01/21 History cyanocobalamin (vitamin B-12) 1,000 mcg PO DAILY 03/20/21 04/01/21 History tamsulosin 0.4 mg PO DAILY 03/20/21 04/01/21 History Patient hx anesthesia problems: none Family hx anesthesia problems: none PMFSH Past Medical History Medical History (Updated 03/31/21 @ 08:54 by Kevin Alexander, ) Anxiety Arthritis BPH (benign prostatic hyperplasia) History of DVT (deep vein thrombosis) 2020, R leg, xarelto x 6 months Obesity Surgical History Surgical History S/P cubital tunnel release Status post laparoscopic cholecystectomy Status post total right knee replacement Family History Family History Mother Family history of malignant neoplasm Father Family history of pancreatic disease Other Cerebrovascular accident Family history of cardiovascular disease Social History Social History Social History: The patient is and lives with his in [place], [place]. 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 He designates his , Gillian, as his surrogate decision maker and he wishes to be a full code. He is a former smoker and quit > 10 years ago. No alcohol or drug abuse. Smoking packs per day: 1 Smoking cigarettes per day: 20.0 Years smoked: 20 Smoking pack-years: 20.00 Tobacco type: cigarettes Additional smoking assessment comments: DENIES ANY FORM OF TOBACCO USE Living arrangements: with family Spiritual care concerns: No Agree to blood products: No Anes - Eval Final PreProcedure Day of Procedure 03/31/21 08:53 Patient weight: obese Heart: regular rate and rhythm Lungs: clear to auscultation and normal air movement Airway: Mallampati scale class II Neurological: alert and oriented Last oral intake: >/= 8 hours ASA classification: II Emergent: no Anesthetic plan: proceed Anesthesia type and monitoring: general LMA and standard monitoring Informed Consent: The patient's anesthetic plan and its attendant risks and benefits were discussed with the patient/family/POA. Questions were solicited and answers provided to the satisfaction of the patient/family/POA.
--- NOTE | 2021-03-31 08:55 | WPDANESPNB ---
Anes - Peripheral Nerve Block Date/Time: 03/31/21 08:55 I have discussed with the patient/family/POA the placement of a peripheral nerve block for post-operative pain management, including associated risks, benefits, complications, and side effects. Alternative methods of post-operative analgesia were detailed. Questions were solicited and answers provided to the satisfaction of the patient/family/POA. Time-Out: A pre-procedural Time-Out was completed immediately before starting the procedure and confirmed: Patient Identification, Site, Procedure, Patient Position and the Availability of Requisite Equipment. Clinical Indications: Acute post-operative pain management requested by the operative surgeon. Nerve Block Insertion Note Anes-nerve block: adductor canal left Patient position: supine Skin prep: chlorhexidine Needle: 22 gauge, stimulating, insulated echogenic needle. Needle length: 80 mm Technique: ultrasound Injectate: bupivacaine 0.5% with epi 5 mcg/ml (30cc - no epi) Observations: tolerated well Complications: none Procedure start time:: 715 Procedure end time:: 719
[2021-04-01] VITALS (13 sets, daily range): BP systolic 121–149; BP diastolic 78–95; PULSE 67–86; RESP 12–16; TEMP 35.9–36.1; O2SAT 93–99
--- NOTE | ~2021-04-01 | XR_ITS ---
EXAMINATION: XR knee LT 2V DATE: 04/01/2021 10:04 CDT INDICATION: Left total knee arthroplasty TECHNIQUE: 2 views left knee FINDINGS: There is a left total knee arthroplasty in expected position. Subcutaneous gas with fluid and air in the joint and overlying skin pao are consistent with recent surgery. No evidence of pe riprosthetic fracture. IMPRESSION: 1. Recent left total knee arthroplasty. Reviewed, dictated and finalized at location A.
[2021-04-01] MEDS: ACETAMINOPHEN 500 MG TABLET 1000 MG PO (06:16)
[2021-04-01] MEDS: LACTATED RINGERS 1,000 ML 30 ML IV CONT ×3 (06:24→10:17)
[2021-04-01] MEDS: TRANEXAMIC ACID 1,000MG/ISO100 1,000 MG/100 ML BAG 200 MG IVPB (06:30)
--- NOTE | 2021-04-01 07:11 | WPDHPUPDATE1 ---
History and Physical Update Update Date/Time: 04/01/21 07:11 History and Physical has been reviewed, including an updated exam of the patient. There are NO changes in the patient's condition. Risks, benefits, and alternatives have been discussed and questions answered. Patient agrees to proceed with procedure.
[2021-04-01] MEDS: ceFAZolin 2 GM/D5W 50 ML 2 GM/50 ML BAG IVPB (07:22)
--- NOTE | 2021-04-01 09:13 | P.OPB_ITS ---
Procedure Note - Brief Procedure Note - Brief Date of procedure: 04/01/21 Pre-op diagnosis: Osteoarthritis Left Knee Post-op diagnosis: same Anesthesia: GETA Surgeon: Mauro Kapadia MD Diagnosis degenerative arthritis left knee procedure right total knee arthroplasty surgeon Kang patient brought up room 7. A general anesthetic applied sterilely prepped and draped in usual manner for inflated 300 millimeters hg 42 minutes launch to incision made dissection could in the fascia medial parapatellar approach made subluxated laterally and the patella cut from 22 to 20 millimeter to 15 millimeters and sized for a 37 button tibia cut perpendicular long axis femur in 5? of valgus resecting 48631 tibia placed soft tissues balanced hemostasis obtained all [address] 79 tibia 675 femur 37 millimeter patella 60 millimeter tray high could not get the a.m. and tray and because I just could not push it through I would try to release even more medially but that did work had that at this point a 361 and with some difficulty the 16 when in with some difficulty motion 0 to 120? seems stable in all directions when they are getting close to have the detailed notes and closed with 2. Vicryl Tammy Vicryl and pao ankle Improvement Coordinator: Hong Potter Estimated blood loss (mL): 200 Drains: No Packing: No Pathology: none sent Complications: No immediate complications Condition: stable Disposition: PACU
[2021-04-01] MEDS: fentaNYL CITRATE INJ (*CRX) 100 MCG/2 ML VIAL 25 MCG IV PUSH ×6 (10:00→10:30)
[2021-04-01] MEDS: ONDANSETRON INJ 4 MG/2 ML VIAL IV PUSH (10:20)
--- NOTE | 2021-04-01 10:53 | SUR.PHASEI ---
PT RSTFL IN PACU. RATES PAIN 02/12. FLACC SCORE0. SPO2 87 ON RA WHILE ASLEEP; 95 ON 2LPM PNC. SPOUSE UPDATED. LT KNEE DRSNG C/D/I. LT TOES PINK/WARM/MOBILE. NEUROVASC INTACT.
[2021-04-01] MEDS: oxyCODONE HCL (*CRX) 5 MG TAB IR PO (11:51)
[2021-04-01] MEDS: KETOROLAC 15 MG/ML VIAL (*BKC) IV PUSH (12:39)
--- NOTE | 2021-04-01 13:04 | SUR.PHASEII ---
Spoke with Dr. Kapadia's office and informed that patient does not have any blood thinners ordered for discharge. Office states that Dr. Kapadia typically does order this at discharge, they will contact Dr. Kapadia to address and will contact patient with instructions.
--- NOTE | 2021-04-01 14:15 | SUR.PHASEII ---
Patient cleared for discharge per anesthesia, Patient stats he feels ready to go home.
== END 2021-04-01 14:20 | disposition home health service (06) ==
PROVIDERS: PCP Family Medicine; Visit Provider Orthopaedic Surgery
PROC: (CPT 27447; principal; 2021-04-01 07:30)
DX: M17.12 Unilateral primary osteoarthritis, left knee (principal); G89.18 Other acute postprocedural pain; N40.0 Benign prostatic hyperplasia without lower urinary tract symptoms; F41.9 Anxiety disorder, unspecified; Z86.718 Personal history of other venous thrombosis and embolism; E66.9 Obesity, unspecified; Z68.37 Body mass index [BMI] 37.0-37.9, adult; Z87.891 Personal history of nicotine dependence
CPT/HCPCS: 27447; 64447; 73560; 80307; 82040; 82565; 82947; 83036; 85025; 86850; 86900; 86901; 93005; 97161; A9270; C1713; C1776; J0171; J0690; J1100; J1885; J2250; J2270; J2405; J2704; J2795; J3010; J3370; J7120

== ENCOUNTER → 2021-09-01 02:39 | Outpatient (CLI) | payer MEDICARE, SELFPAY ==
[2021-09-02 03:59] LABS: SARS-CoV-2 RNA PCR Positive
== END ==
PROVIDERS: PCP Family Medicine; Visit Provider Family Medicine
DX: U07.1 COVID-19 (principal); R05.9 Cough, unspecified; R50.81 Fever presenting with conditions classified elsewhere
CPT/HCPCS: C9803; U0003; U0005

== ENCOUNTER 2021-09-07 07:15 | Outpatient (RCR) | payer MEDICARE, SELFPAY ==
[2021-09-07] MEDS: diphenhydrAMINE HCl CAP 25 MG CAPSULE PO (07:58)
[2021-09-07] MEDS: FAMOTIDINE 20 MG TABLET PO (07:58)
[2021-09-07] MEDS: ACETAMINOPHEN 325 MG TABLET 650 MG PO (07:58)
[2021-09-07 08:01] VITALS: BP 128/80; PULSE 76; RESP 16; TEMP 35.7; O2SAT 98
[2021-09-07 09:19] VITALS: BP 123/71; PULSE 62; RESP 18; O2SAT 97
== END 2021-09-07 17:00 ==
LOC: AMCINF 07:15
PROVIDERS: PCP Family Medicine; Visit Provider Internal Medicine Hematology & Oncology
DX: U07.1 COVID-19 (principal)
CPT/HCPCS: A9270; M0245; Q0245

== ENCOUNTER 2021-10-13 00:19 | Day surgery (SDC) | payer MEDICARE, SELFPAY ==
[2021-10-01 14:31] VITALS: BMI 35.3
[2021-10-13 08:18] VITALS: BP 139/94; PULSE 84; RESP 20; TEMP 36; O2SAT 95
--- NOTE | 2021-10-13 08:20 | WPDGICN ---
Assessment and Plan Assessment and plan (1) Dysphagia: Code(s): R13.10 - Dysphagia, unspecified Status: Acute Assessment and Plan: Patient has persistent difficulty swallowing with food catching the mid substernal portion of the chest. Plan to evaluate with an EGD today. Possible dilatation if esophageal narrowing is identified. Further recommendations may be given after endoscopy. (2) Encounter for screening colonoscopy: Code(s): Z12.11 - Encounter for screening for malignant neoplasm of colon Status: Acute Assessment and Plan: Patient presents for screening colonoscopy. Appears to be at average risk for colon polyps. (3) Obesity: Code(s): E66.9 - Obesity, unspecified Status: Acute Assessment and Plan: Patient is overweight. Weight loss dietary restriction increase activity oral encouraged. GI Consult Note Consult date/time: 10/13/21 08:20 HPI: Evans Rico is a 61 year old male Presents for GI endoscopy. Over the last year he is noted difficulty swallowing solid foods. These will occasionally catch in the low mid substernal area. Patient denies any heartburn. He has had no weight loss. Denies any bleeding. Patient additionally presents for neoplasia screening colonoscopy. He denies any blood in his stools. His bowel habits tend to be regular. He does have back spasms for which he receives an injection. His family history is noncontributory. Review of Systems Review of Systems: All systems reviewed & are unremarkable except as noted in HPI and below PMFSH Past Medical History Medical History (Updated 10/13/21 @ 08:22 by Madi Oquendo MD) Anxiety Arthritis BPH (benign prostatic hyperplasia) History of DVT (deep vein thrombosis) 2020, R leg, xarelto x 6 months Obesity Surgical History Surgical History S/P cubital tunnel release Status post laparoscopic cholecystectomy Status post total right knee replacement Family History Family History Mother Family history of malignant neoplasm Father Family history of pancreatic disease Other Cerebrovascular accident Family history of cardiovascular disease Social History Social History Social History: The patient is and lives with his in [place], [place]. 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 He designates his , Gillian, as his surrogate decision maker and he wishes to be a full code. He is a former smoker and quit > 10 years ago. No alcohol or drug abuse. Smoking packs per day: 2 Smoking cigarettes per day: 40.0 Years smoked: 15 Smoking pack-years: 30.00 Smoking status: Former smoker Tobacco type: cigarettes Additional smoking assessment comments: DENIES ANY FORM OF TOBACCO USE Alcohol intake: former Alcohol use details: years ago-socially Substance use: never Substance use type: does not use Living arrangements: with family Spiritual care concerns: No Agree to blood products: No Meds Home Medications and Allergies Home Medications Medication Instructions Recorded Confirmed Type duloxetine 60 mg PO DAILY 10/16/19 10/01/21 History meloxicam 15 mg PO DAILY 01/10/20 10/01/21 History cetirizine [Zyrtec] 10 mg PO DAILY 03/20/21 10/01/21 History cyanocobalamin (vitamin B-12) 1,000 mcg PO DAILY 03/20/21 10/01/21 History tamsulosin 0.4 mg PO DAILY 03/20/21 10/01/21 History hydrocodone-acetaminophen 1 tablet PO Q4H PRN #40 tablet 04/01/21 10/01/21 Rx Allergies Allergy/AdvReac Type Severity Reaction Status Date / Time Latex, Natural Rubber Allergy Rash AND Verified 10/01/21 14:29 ITCHING aspirin AdvReac Gastrointestinal Verified 10/01/21 14:29 Upset Exam Narrative: Physical exam reveals patient to be alert.
[2021-10-13] MEDS: LACTATED RINGERS 1,000 ML 150 ML IV CONT (08:34)
[2021-10-13] MEDS: AMPICILLIN 2 GM/NS 100 ML 2 GM/100 ML BAG IVPB (08:44)
--- NOTE | 2021-10-13 08:47 | WPDANESEPPF ---
Anes - Initial Pre Proc Eval Procedure: Operation Date: 10/13/21 09:30 Proposed Procedures p Esophagogastroduodenoscopy & Screening Colonoscopy - Madi Oquendo MD Date/Time: 10/13/21 08:47 Surgeon: Madi Oquendo MD Pre Op Diagnosis: dysphagia, neoplasm screening Patient Data Age: 61 Gender: M Height: 1.8 m Weight: 113.9 kg Last Vital Signs Temp 96.8 F L 10/13/21 08:18 Pulse 84 10/13/21 08:18 Resp 20 10/13/21 08:18 BP 139/94 H 10/13/21 08:18 Pulse Ox 95 10/13/21 08:18 Allergies Allergy/AdvReac Type Severity Reaction Status Date / Time Latex, Natural Rubber Allergy Rash AND Verified 10/01/21 14:29 ITCHING aspirin AdvReac Gastrointestinal Verified 10/01/21 14:29 Upset Home Medications Medication Instructions Recorded Confirmed Type duloxetine 60 mg PO DAILY 10/16/19 10/01/21 History meloxicam 15 mg PO DAILY 01/10/20 10/01/21 History cetirizine [Zyrtec] 10 mg PO DAILY 03/20/21 10/01/21 History cyanocobalamin (vitamin B-12) 1,000 mcg PO DAILY 03/20/21 10/01/21 History tamsulosin 0.4 mg PO DAILY 03/20/21 10/01/21 History hydrocodone-acetaminophen 1 tablet PO Q4H PRN #40 tablet 04/01/21 10/01/21 Rx Patient hx anesthesia problems: none Family hx anesthesia problems: none Results Review: All pre-operative results and documents have been reviewed as part of the pre-operative evaluation. [facility] Past Medical History Medical History (Updated 10/13/21 @ 08:22 by Madi Oquendo MD) Anxiety Arthritis BPH (benign prostatic hyperplasia) History of DVT (deep vein thrombosis) 2020, R leg, xarelto x 6 months Obesity Surgical History Surgical History S/P cubital tunnel release Status post laparoscopic cholecystectomy Status post total right knee replacement Family History Family History Mother Family history of malignant neoplasm Father Family history of pancreatic disease Other Cerebrovascular accident Family history of cardiovascular disease Social History Social History Social History: The patient is and lives with his in [place], [place]. 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 He designates his , Gillian, as his surrogate decision maker and he wishes to be a full code. He is a former smoker and quit > 10 years ago. No alcohol or drug abuse. Smoking packs per day: 2 Smoking cigarettes per day: 40.0 Years smoked: 15 Smoking pack-years: 30.00 Smoking status: Former smoker Tobacco type: cigarettes Additional smoking assessment comments: DENIES ANY FORM OF TOBACCO USE Alcohol intake: former Alcohol use details: years ago-socially Substance use: never Substance use type: does not use Living arrangements: with family Spiritual care concerns: No Agree to blood products: No Anes - Eval Final PreProcedure Day of Procedure 10/13/21 08:47 Patient weight: obese Heart: regular rate and rhythm Lungs: clear to auscultation Airway: Mallampati scale class II Neurological: alert and oriented Last oral intake: >/= 8 hours ASA classification: II Emergent: no Anesthetic plan: proceed Anesthesia type and monitoring: general GIVS and standard monitoring Results Review: All pre-operative results and documents have been reviewed as part of the pre-operative evaluation. Informed Consent: The patient's anesthetic plan and its attendant risks and benefits were discussed with the patient/family/POA. Questions were solicited and answers provided to the satisfaction of the patient/family/POA.
--- NOTE | 2021-10-13 09:29 | SUR.OPER ---
EGD END AT 923. COLONOSCOPY START AT 928.
[2021-10-13 09:47] VITALS: BP 124/85; PULSE 81; RESP 19; O2SAT 95
[2021-10-13 09:57] VITALS: BP 146/102; PULSE 71; RESP 15; O2SAT 97
[2021-10-13 10:07] VITALS: BP 147/104; PULSE 61; RESP 18; O2SAT 99
== END 2021-10-13 10:16 | disposition home or self-care (01) ==
PROVIDERS: PCP Family Medicine; Visit Provider Internal Medicine Gastroenterology
PROC: 0DJ08ZZ Inspection of Upper Intestinal Tract, Via Natural or Artificial Opening Endoscopic (ICD-10-PCS; CPT 43235; principal; 2021-10-13 09:30)
DX: Z12.11 Encounter for screening for malignant neoplasm of colon (principal); D12.3 Benign neoplasm of transverse colon; K64.8 Other hemorrhoids; K57.30 Diverticulosis of large intestine without perforation or abscess without bleeding; Q39.4 Esophageal web; N40.0 Benign prostatic hyperplasia without lower urinary tract symptoms; F41.9 Anxiety disorder, unspecified; Z86.718 Personal history of other venous thrombosis and embolism; E66.9 Obesity, unspecified; Z68.35 Body mass index [BMI] 35.0-35.9, adult
CPT/HCPCS: 45385; 43450; 43235; 88305; J0290; J2704; J7120

== ENCOUNTER 2023-07-21 14:01 | Outpatient (NON) | payer MEDICARE, SELFPAY | END 2023-07-21 14:02 | disposition home or self-care (01) | PROVIDERS: PCP Family Medicine; Visit Provider Nurse Practitioner | DX: L30.8 Other specified dermatitis (principal) | CPT/HCPCS: 88305 ==

== ENCOUNTER 2024-05-24 08:51 | Outpatient (CLI) | payer MEDICARE, SELFPAY ==
--- NOTE | ~2024-05-24 | MR_ITS ---
EXAMINATION: MR brain/brain stem wo con DATE: 05/24/2024 09:25 INDICATION: Other amnesia. TECHNIQUE: Magnetic resonance imaging (MRI) of the brain and brainstem was performed without intraven ous contrast. COMPARISON: Brain MRI 11/02/2012 FINDINGS: There are scattered areas of nonspecific increased T2-weighted signal intensity in the cere bral white matter, which is within normal limits for the patient's age. There is no intracranial hemo rrhage, acute infarction, or abnormal intracranial mass lesion. The ventricles are normal in size. Th ere is mild mucosal thickening in the ethmoid sinuses. The orbits are normal. The mastoid air cells a re normal. IMPRESSION: 1. Normal aging brain. Reviewed, dictated and finalized at location A. IMPRESSION: 1. Normal aging brain.
== END 2024-05-24 08:52 | disposition home or self-care (01) ==
PROVIDERS: PCP Family Medicine; Visit Provider Family Medicine
DX: R41.3 Other amnesia (principal)
CPT/HCPCS: 70551

== ENCOUNTER 2024-06-21 09:00 | Outpatient (RCR) | payer MEDICARE, SELFPAY ==
--- NOTE | 2024-05-24 14:18 | OPREHPOC ---
Outpatient Therapy Plan of Care This is a Multidisciplinary Plan of Care that may contain components documented by all disciplines (PT, OT, and ST.) PT Problem 1 PT Problem #1 Knowledge Deficit PT Goal 1 Goal / Goal Update [place] with HEP Target Visit 2 PT Problem 2 PT Problem #2 Impaired Range of Motion PT Goal 1 Goal / Goal Update Achieve 40 degrees of christi hip abduction to improve capsular motion with squatting and ambulation Target Visit 8 PT Goal 2 Goal / Goal Update Demonstrate -25 degrees or better christi hamstring length to reduce posterior pelvic pull Target Visit 8 PT Problem 3 PT Problem #3 Impaired Strength PT Goal 1 Goal / Goal Update Improve christi hip abduction strength to 4/5 to improve lateral stability with ADLs Target Visit 8
--- NOTE | 2024-05-24 14:18 | PTOPEVAL1 ---
Assessment and note entered by Laz Batista, PT Evaluation Information Assessment Status Evaluation Diagnosis Spinal Stenosis ICD-10 Condition Codes (PT) Pain in low back M54.50 Onset 2011 Subjective Information Reports that he has started on a steroid. He feels like they have made a difference but he has not been doing. He gets most of his trouble if he stands for a long time. Movement helps. If he gets up from prolonged sitting he has a lot of difficulty with pain. Feels he has gotten weakness in his legs but denies any falls or tripping. History of christi knee replacement. He had an X-ray on the showing severe spinal stenosis. Reported Pain Level Pain Score 1: Self Report Assessment PT Clinical Summary Patient presents with signs and symptoms consistent with lumbar stenosis. Review of x-rays indicates severe at levels L2-L3 and L5-S1 with anterolisthesis. Patient had positive results with decompression activity this session and indicates poor mobility in hips. Will benefit from skilled therapy to address this session to improve hip mobility and core strength for usp functional improvement. Plan of Care Interventions Electrical Stimulation,Gait Training,Manual Therapy,Neuro Re-education,Therapeutic Activities, Therapeutic Exercise PT Services Indicated Yes Treatment Frequency and 2x/week for 8 visits Duration These treatments will address the objective and functional deficits as defined above. The patient will be advanced safely and appropriately in order for the patient to progress towards his/her prior level of function. Additional exercises will be introduced and as well as a comprehensive home exercise program upon discharge, if needed, ?to ensure carryover of functional gains achieved in the clinic. This treatment plan has been reviewed and agreement upon by the patient.
--- NOTE | 2024-06-21 09:49 | PTOPDC ---
Assessment and note entered by Magnolia Swift, PT Discharge Report Assessment Status Discharge Diagnosis Spinal Stenosis ICD-10 Condition Codes (PT) Pain in low back M54.50 Onset 2011 Subjective Information therapy has helped his back-- better and not hurting as bad as was; have been doing the exercises at home; feel like ready to be finished with therapy. Reported Pain Level Pain Score Self Report Additional Pain Score Comments PAIN; range in the past week 2-5/10; L low back - cramps and top of ankle cramps and sharp increase pain: lifting, standing decrease pain: moving, walking, ice taking meloxicam; done with the steroids; with sleeping awaken due to back pain 0-1x/night with change of position do not do any outside work anymore; reinforced activity/rest balance to manage pain Assessment PT Clinical Summary Evans has received 6 PT sessions. Compared to the initial evaluation: pain has decreased from 1-8/10 to 2-5/10; continues to have radicular pain into L foot; Oswestry self rating of 58% limitation in activity level; standing increases his pain; sleeping is disrupted 0-1x/night due to back pain; has decreased flexibility over both hamstrings and anterior hip/quad muscles; increase strength of trunk and hips; education for HEP and back care. The goals were partially met. Discharge PT services. To continue with HEP and pain management techniques. Plan of Care PT Services Indicated No
== END 2024-06-21 10:35 | disposition home or self-care (01) ==
LOC: ANHPT 09:00
PROVIDERS: PCP Family Medicine; Visit Provider Orthopaedic Surgery
DX: M48.00 Spinal stenosis, site unspecified (principal)
CPT/HCPCS: 97110; 97140; 97161; 97530